=== PATIENT | female | born 1935 | race Caucasian/White ===

== ENCOUNTER → 2016-07-21 | Outpatient (CLI) | payer MEDICARE, OTHER | LOC: RAD 07:03 | PROVIDERS: ATTEND Family Medicine | DX: M25.551 Pain in right hip (principal) | CPT/HCPCS: 72195 ==

== ENCOUNTER → 2017-05-01 | Outpatient (CLI) | payer MEDICARE, OTHER ==
--- NOTE | 2017-05-01 14:42 | RADIOLOGY REPORT (SQ) ---
EXAM DESCRIPTION: MRI RT LOWER JOINT WITHOUT COMPLETED DATE/TIME: 05/01/2017 1:38 pm REASON FOR STUDY: TROCHANTERIC BURSITIS, RIGHT HIP (M70.61) M70.61 TROCHANTERIC BURSITIS, RIGHT HIP COMPARISON: MRI right hip 10/13/2010 TECHNIQUE: Righthip images acquired and stored on PACS. Multiplanar images to include fat sensitive sequences as T1, fluid sensitive sequences as T2/STIR and gradient echo sequences. Large FOV fat and fluid sensitive sequences include pelvis and opposite hip. LIMITATIONS: None. FINDINGS: BONE CORTEX AND MARROW: No generalized marrow replacement. No occult fracture. No worriso me bone lesions. RIGHT HIP: FEMORAL HEAD: No occult fracture. No osteophytes or subchondral cysts. Normal sphericity of femoral h ead/neck junction. No acetabular dysplasia. No evidence femoroacetabular impingement. No significant effusion. ACETABULUM: No acetabular dysplasia. No subchondral cysts. LABRUM: No loss of cartilage or delamination. Tiny anterior labral tear. No paralabral cysts. TROCHANTER: Trace trochanteric bursal effusion. There is edema/fluid at the insertion of the gluteus medius. There is also of a small intramuscular tear along the gluteus medius, best shown on sagitta l series 8, image 6, and coronal series 9, image 11. LEFT HIP: Limited evaluation. No worrisome bone lesions. No significant effusion. Minimal left tro chanteric bursitis PELVIS, LOWER LUMBAR SPINE, SACROILIAC JOINTS: PELVIS : No insufficiency/stress fractures. No significant degenerative changes. Sacroiliac joints normal. L SPINE: Convex rightward lumbar curvature MUSCLES AND SOFT TISSUES: Adductors and piriformis normal. Abductors and greater trochanteric bursa n ormal without edema or fluid. Iliopsoas bursa without fluid. Hamstring attachments without edema or t ear. PELVIC SOFT TISSUES: No masses or adenopathy. Post hysterectomy. Small right and left bladder diver ticuli OTHER: No other significant finding. IMPRESSION: Gluteus medius intramuscular tear without significant hematoma Right trochanteric bursitis Minimal left trochanteric bursitis TECHNICAL DOCUMENTATION: JOB ID: [id number] [employer]- All Rights Reserved
== END ==
LOC: RAD 12:23
PROVIDERS: ATTEND Family Medicine
DX: M70.61 Trochanteric bursitis, right hip (principal)

== ENCOUNTER 2018-04-24 06:42 | Day surgery (SDC) | payer MEDICARE, OTHER ==
[~2018-04-24 06:42] MED LIST: BUPIVACAINE HCL 0.75% INJ/PF (7.5 MG/1 ML) 10 ML SDV OS PRN; DORZOLAMIDE HCL 2%/TIMOLOL MALEAT 0.5% OPH SOLN 10 ML OS PRN; KETOROLAC TROMETHAMINE 0.45% 4 DROP/0.4 ML DROPERETTE OS PRN; LIDOCAINE 4% INJ/PF (40 MG/ML) 5 ML AMPUL OS PRN
[2018-04-24] MEDS: TETRACAINE HCL 0.5% OPH SOLN 0.6 ML DROPERETTE OS PRN ×2 (07:00→07:18)
[2018-04-24] MEDS: BESIFLOXACIN HCL 0.6% OPH SUSP 5 ML BOTTLE OS PRN ×4 (07:00→07:57)
[2018-04-24] MEDS: TROPICAMIDE 1% OPH SOLN 3 ML OS PRN ×3 (07:00→07:18)
[2018-04-24] MEDS: CYCLOPENTOLATE 0.2%/PHENYLEPHRINE 1% OPH SOLN 2 ML OS PRN ×3 (07:00→07:18)
[2018-04-24] MEDS ORDERED: EPINEPHRINE INJ/PF 1 MG/1 ML AMPULE ONE (07:12)
[2018-04-24] MEDS ORDERED: CHONDR SU A NA/HYALUR INTRAOC KIT (SURGICARE) ONE (07:12)
[2018-04-24] MEDS ORDERED: MIDAZOLAM 2 MG/2 ML INJ ONE (07:20)
[2018-04-24] MEDS ORDERED: FENTANYL CITRATE INJ/PF 100 MCG/2 ML AMPUL ONE (07:20)
[2018-04-24] MEDS: LIDOCAINE 1% INJ-PF (10 MG/ML) 30 ML SDV ONE ×2 (07:28→07:44)
--- NOTE | 2018-04-24 08:21 | [facility] OPERATIVE REPORT E ---
[facility] Operative Report NAME: PILAR EDGAR AGE: 83Y DATE OF SURGERY: 04/24/2018 ROOM: PREOPERATIVE DIAGNOSIS: CATARACT, LEFT EYE. POSTOPERATIVE DIAGNOSIS: CATARACT, LEFT EYE. PROCEDURE PERFORMED: PHACOEMULSIFICATION WITH POSTERIOR CHAMBER INTRAOCULAR LENS, LEFT EYE. SURGEON: LEE FLANNERY MD ANESTHESIA: TOPICAL WITH MAC. INDICATIONS FOR SURGERY: Difficulty driving at night due to glare. Best corrected visual acuity 20/40. PROCEDURE: The patient was brought to the Operating Room and placed on the operative table. Following tetracaine drops, topical anesthesia was administered. This consisted of instrument wipe pledgets soaked in a solution of 4% Xylocaine mixed with 0.75% Marcaine in a 1:2 ratio. A 2 x 1 cm pledget was placed in the superior fornix. A 1 x 1 cm pledget was placed in the inferior fornix. The eye was patched shut for 5 minutes. The patch was removed. The eye was sterilely prepped and draped in the usual manner. Lid speculum was placed in the eye. The pledgets were removed. 4-0 black silk sutures were placed around the superior and the inferior rectus muscles to be used as traction. A conjunctival peritomy was made at the 10 o'clock position. Hemostasis was obtained with bipolar cautery. A posterior limbal groove was created using a crescent knife and dissected anteriorly towards the cornea. A sharp point blade was used to create a paracentesis site at the 2 o'clock position. A 2.4 mm keratome was used to enter the anterior chamber through the groove. Viscoelastic was injected into the anterior chamber. An anterior capsulotomy was performed using Utrata forceps in a capsulorrhexis fashion. Hydrodissection and hydrodelineation were performed. Phacoemulsification was performed in toreqd-lbt-[id number] technique. A total of 4.55 CDE phaco time was used. Following this, the I/A unit was used to remove residual cortex. Viscoelastic was injected into the capsular bag. Intraocular lens model [id number], 25.5 diopters, serial number [id number] was placed in the capsular bag. The I/A unit was used to remove residual viscoelastic. The wound was seen to be watertight under high and low pressure, and no sutures were placed. The intraocular lens was well centered. The pressure was adjusted in the eye to normal pressure. The 4-0 black silk sutures and lid speculum were removed. The eye was shielded after Besivance drops were placed. The patient tolerated the procedure well and was sent to the Recovery Room in good condition. One drop of Cosopt and Besivance was placed in the eye at the end of surgery. DICTATING PHYSICIAN: LEE FLANNERY M.D. DICTATING PHYSICIAN: LEE FLANNERY M.D. [id number] PHY#: [id number] ID: [id number] JOB#: [id number] ACCT: [id number] cc:LEE FLANNERY M.D. > MTDD
--- NOTE | 2018-04-24 08:27 | [facility] DISCHARGE SUMMARY E ---
[facility] Discharge Summary NAME: PILAR EDGAR AGE: 83Y ADMITTED: 04/24/2018 DISCHARGED: 04/24/2018 FINAL DIAGNOSIS: CATARACT, LEFT EYE. HOSPITAL COURSE: The patient is an 82-year-old lady who underwent uneventful cataract extraction with intraocular lens implant, left eye on 04/24/2018. She will be discharged to home. She is instructed to resume preoperative medications, take Tylenol as needed for discomfort, to keep her eye shielded, to use Besivance, Prolensa, and Durezol at 3 p.m. and 8 p.m., and to follow up in my office in 1 day. DICTATING PHYSICIAN: LEE FLANNERY M.D. [id number] PHY#: [id number] ID: [id number] JOB#: [id number] ACCT: [id number] cc:LEE FLANNERY M.D. >
== END 2018-04-24 08:35 | disposition home or self-care (01) ==
LOC: SC 06:42
PROVIDERS: ATTEND Ophthalmology
DX: H25.812 Combined forms of age-related cataract, left eye (principal); I10 Essential (primary) hypertension; M19.90 Unspecified osteoarthritis, unspecified site; Z79.899 Other long term (current) drug therapy
CPT/HCPCS: 66984; V2632; J2250; J3490 ×4; A9270; J0171; J3010; 142

== ENCOUNTER 2018-09-27 20:08 | Emergency (ER) | payer MEDICARE, OTHER ==
[2018-09-27] MEDS ORDERED: ASPIRIN 81 MG TABLET, CHEWABLE PO STA (23:10)
--- NOTE | 2018-09-27 23:17 | ER Document Report ---
ED Medical Screen (RME) - General Chief Complaint: Epigastric Pain Stated Complaint: Chest pain Time Seen by Provider: 09/27/18 23:01 Information source: Patient, Relative Notes: Patient is a 3-year-old female comes emergency room stating that she felt like she is having a heart attack approximately 5 PM this afternoon. Patient is calmly by/friend/relative who states that she was eating a BLT when she started having sudden onset of anterior chest pain and discomfort. Patient states that she thought at that point she was having a heart attack and she states so did the other women are with her. She also states that for women are staying at her house currently. Patient states that this discomfort and pain lasted for approximately 3hours and just recently went away while she was in the emergency room. She states she feels better now. She denies any history of heart problems in the past. Only has a history of hypertension. She does not smoke drink or do drugs. She took [address] to the emergency room. Denies any nausea vomiting she denies any diaphoresis during the actual event. TRAVEL OUTSIDE OF THE [place] IN LAST 30 DAYS: No - HPI Onset: This evening Onset/Duration: Sudden, Better Quality of pain: Sharp, Stabbing Severity: Moderate Pain Level: 4 Associated Symptoms: Chest pain Exacerbated by: Denies Relieved by: Other - Time eliminated the discomfort. Similar symptoms previously: No Recently seen / treated by doctor: No - Related Data Allergies/Adverse Reactions: No Known Allergies Allergy (Verified 04/24/18 07:02) Past Medical History - General Information source: Patient - Social History Cigarette use (# per day): No Chew tobacco use (# tins/day): No Frequency of alcohol use: None Drug Abuse: None Lives with: Alone Family history: Reviewed & Not Pertinent - Past Medical History Cardiac Medical History: Reports: Hx Hypercholesterolemia, Hx Hypertension - MILD Denies: Hx Heart Attack Pulmonary Medical History: Denies: Hx Asthma Neurological Medical History: Denies: Hx Cerebrovascular Accident, Hx Seizures Renal/ Medical History: Denies: Hx Peritoneal Dialysis GI Medical History: Denies: Hx Hepatitis, Hx Hiatal Hernia, Hx Ulcer Infectious Medical History: Denies: Hx Hepatitis Past Surgical History: Reports: Hx Hysterectomy, Hx Orthopedic Surgery. Denies: Hx Mastectomy, Hx Open Heart Surgery, Hx Pacemaker - Immunizations Hx Diphtheria, Pertussis, Tetanus Vaccination: Yes - 2013 Review of Systems - Review of Systems Constitutional: No symptoms reported EENT: No symptoms reported Cardiovascular: See HPI, Chest pain Respiratory: No symptoms reported Gastrointestinal: No symptoms reported Genitourinary: No symptoms reported Female Genitourinary: No symptoms reported Musculoskeletal: No symptoms reported Skin: No symptoms reported Hematologic/Lymphatic: No symptoms reported Neurological/Psychological: No symptoms reported Physical Exam - Vital signs Vitals: Temp Pulse Resp BP Pulse Ox 98.0 F 83 16 178/77 H 96 09/27/18 20:31 09/27/18 20:09/27/18 20:31 09/27/18 20:31 09/27/18 20:31 Interpretation: Hypertensive - Notes Notes: PHYSICAL EXAMINATION: GENERAL: Patient is a well-nourished well-developed 83-year-old female who is anxious on physical exam today. HEAD: Atraumatic, normocephalic. LUNGS: Breath sounds clear to auscultation bilaterally and equal. No wheezes r ales or rhonchi. HEART: Regular rate and rhythm without murmurs Musculoskeletal: Normal range of motion, no pitting or edema. No cyanosis. NEUROLOGICAL: Normal speech, normal gait. Normal sensory, motor exams PSYCH: Normal mood, normal affect. SKIN: Warm, Dry, normal turgor, no rashes or lesions noted. Course - Vital Signs Vital signs: Temp Pulse Resp BP Pulse Ox 98.0 F 83 16 178/77 H 96 09/27/18 20:31 09/27/18 20:31 09/27/18 20:31 09/27/18 20:31 09/27/18 20:31
[2018-09-27 23:40] LABS: ABSOLUTE BASOPHILS # (AUTO) 0.1 10^3/uL (0.0-0.2); ABSOLUTE EOSINOPHILS # (AUTO) 0.1 10^3/uL (0.0-0.6); ABSOLUTE LYMPHOCYTES (AUTO) 3.7 10^3/uL (0.5-4.7); ABSOLUTE MONOCYTES (AUTO) 1.1 10^3/uL (0.1-1.4); ABSOLUTE NEUT (AUTO) 13.7 10^3/uL (1.7-8.2); BASOPHILS % (AUTO) 0.5 % (0-2); EOSINOPHILS % (AUTO) 0.3 % (0-6); HEMATOCRIT 42.5 % (36.0-47.0); HEMOGLOBIN 14.3 g/dL (12.0-15.5); LYMPHOCYTES % (AUTO) 19.7 % (13-45); MEAN CORPUSCULAR HEMOGLOBIN 28.5 pg (27.0-33.4); MEAN CORPUSCULAR HGB CONC 33.5 g/dL (32.0-36.0); MEAN CORPUSCULAR VOLUME 85 fl (80-97); MONOCYTES % (AUTO) 5.8 % (3-13); PLATELET COUNT 395 10^3/uL (150-450); RED CELL DISTRIBUTION WIDTH 13.2 % (11.5-14.0); SEGMENTED NEUTROPHILS % (AUTO) 73.7 % (42-78); TOTAL CELLS COUNTED % (AUTO) 100 %; WHITE BLOOD COUNT 18.6 10^3/uL (4.0-10.5)
--- NOTE | 2018-09-28 00:07 | RADIOLOGY REPORT (SQ) ---
CLINICAL HISTORY: Chest pain COMPARISON: None. TECHNIQUE: XR CHEST 1 VIEW 09/27/2018 11:10 PM CDT FINDINGS: Cardiac silhouette is normal in size. Lungs are clear without consolidation, atelectasis, mass or edema. There is no pleural effusion. There is no pneumothorax. There are no acute osseous findings. IMPRESSION: Clear lungs.
--- NOTE | 2018-09-28 01:07 | ER Document Report ---
ED General - General Chief Complaint: Epigastric Pain Stated Complaint: Chest pain Time Seen by Provider: 09/27/18 23:01 Primary Care Provider: MELBA FAULKNER MD [Primary Care Provider] - Follow up as needed Notes: Patient is an 83-year-old female that comes to the emergency department for chief complaint of epigastric pain. She states the pain was in her upper abdomen, she points to the epigastric area, she states she had pain that radiated away from this and up into her chest. This started while she was eati ng a BLT at approximately 5 PM this evening. She states that she continued to have pain for 2 to 3 hours which was intermittently sharp, afterwards this resolved. She denies any current symptoms. She denies flank pain, shortness of breath, vomiting, fever. She did have some nausea what was happening. Past medical history includes hypertension, hyperlipidemia, hysterectomy. She denies ever having a stress test, she denies family history of CAD or [place], she denies smoking, diabetes, or any other medical history. TRAVEL OUTSIDE OF THE [place] IN LAST 30 DAYS: No - Related Data Allergies/Adverse Reactions: No Known Allergies Allergy (Verified 04/24/18 07:02) Past Medical History - General Information source: Patient - Social History Smoking Status: Former Smoker Cigarette use (# per day): No Chew tobacco use (# tins/day): No Frequency of alcohol use: None Drug Abuse: None Lives with: Alone Family History: Reviewed & Not Pertinent Patient has suicidal ideation: No Patient has homicidal ideation: No - Past Medical History Cardiac Medical History: Reports: Hx Hypercholesterolemia, Hx Hypertension - MILD Denies: Hx Heart Attack Pulmonary Medical History: Denies: Hx Asthma Neurological Medical History: Denies: Hx Cerebrovascular Accident, Hx Seizures Renal/ Medical History: Denies: Hx Peritoneal Dialysis GI Medical History: Denies: Hx Hepatitis, Hx Hiatal Hernia, Hx Ulcer Infectious Medical History: Denies: Hx Hepatitis Past Surgical History: Reports: Hx Hysterectomy, Hx Orthopedic Surgery. Denies: Hx Mastectomy, Hx Open Heart Surgery, Hx Pacemaker - Immunizations Hx Diphtheria, Pertussis, Tetanus Vaccination: Yes - 2012 Hx Pneumococcal Vaccination: 02/20/12 Review of Systems - Review of Systems Constitutional: No symptoms reported EENT: No symptoms reported Cardiovascular: See HPI Respiratory: No symptoms reported Gastrointestinal: See HPI Genitourinary: No symptoms reported Female Genitourinary: No symptoms reported Musculoskeletal: No symptoms reported Skin: No symptoms reported Hematologic/Lymphatic: No symptoms reported Neurological/Psychological: No symptoms reported Physical Exam - Vital signs Vitals: Temp Pulse Resp BP Pulse Ox 98.0 F 83 16 178/77 H 96 09/27/18 20:31 09/27/18 20:31 09/27/18 20:31 09/27/18 20:31 09/27/18 20:31 - Notes Notes: GENERAL: Alert, interacts well. No acute distress. HEAD: Normocephalic, atraumatic. EYES: Pupils equal, round, and reactive to light. Extraocular movements intact. ENT: Oral mucosa moist, tongue midline. Oropharynx unremarkable. Airway patent. NECK: Full range of motion. Supple. Trachea midline. LUNGS: Clear to auscultation bilaterally, no wheezes, rales, or rhonchi. No respiratory distress. HEART: Regular rate and rhythm. No murmur ABDOMEN: Soft, non-tender. Non-distended. Bowel sounds present in all 4 quadrants. GENITOURINARY: Deferred EXTREMITIES: Moves all 4 extremities spontaneously. No edema, normal radial and dorsalis pedis pulses bilaterally. No cyanosis. BACK: no cervical, thoracic, lumbar midline tenderness. No saddle anesthesia, normal distal neurovascular exam. NEUROLOGICAL: Alert and oriented x3. Normal speech. . PSYCH: Anxious but easily reassured SKIN: Warm, dry, normal turgor. No rashes or lesions noted. Course - Re-evaluation Re-evalutation: Patient is anxious but well-appearing. She is easily reassured with discussion however. EKG reviewed by me, shows sinus rhythm, no T wave inversions or ST segment changes in consecutive leads, normal axis. Chest x-ray unremarkable. CBC shows leukocytosis at 18,000. Chemistry hemolyzed, troponin hemolyzed. On evaluation patient has a soft benign abdomen although she does indicate the epigastric area as the area of her pain previously. I discussed leukocytosis 18,000. Patient has an unremarkable exam, no sick symptoms, negative chest x- ray. Family and patient state that patient became extremely anxious during her pain episode, this could be stress shift although this is nonspecific. I did discuss this with family. Family is already asking if they can leave, patient is already asking to leave. Patient has had delay because of the hemolyzed labs, blood was redrawn and there will be 8 hours of symptom duration at the point of the troponin. They are requesting that if this is negative they can leave and she will follow-up closely with her primary care. Her heart score is 3. Chemistry unremarkable, troponin was negative. Lipase is normal. I discussed again with family and patient, they are requesting to leave after discussion of options including admission, they state they will follow-up closely and return if she worsens in any way. Discharged with return precautions. - Vital Signs Vital signs: Temp Pulse Resp BP Pulse Ox 98.4 F 76 16 149/69 H 100 09/28/18 03:04 09/28/18 03:04 09/28/18 03:04 09/28/18 03:04 09/28/18 03:04 - Laboratory Result Diagrams: 09/27/18 23:26 09/28/18 00:50 Laboratory results interpreted by me: 09/27/18 09/28/18 23:26 00:50 WBC 18.6 H Absolute Neutrophils 13.7 H Sodium 136.3 L BUN 24 H Discharge - Discharge Clinical Impression: Epigastric pain Chest pain Qualifiers: Chest pain type: unspecified Qualified Code(s): R07.9 - Chest pain, unspecified Condition: Stable Disposition: HOME, SELF-CARE Additional Instructions: There is no evidence of heart attack, pancreatitis, or other concerning abnormality at this time. This was most likely an esophageal spasm although this is not definite. I recommend that you take the famotidine as prescribed for the next several days. Follow-up closely with your primary care for additional evaluation and management of your epigastric/chest pain that occurred today. Return if you worsen including return severe pain, vomiting, difficulty breathing, passing out, or any other concerning symptoms. Prescriptions: Famotidine [Pepcid 20 mg Tablet] 20 mg PO BID #12 tablet Referrals: MELBA FAULKNER MD [Primary Care Provider] - Follow up as needed
[2018-09-28 01:27] LABS: ALANINE AMINOTRANSFERASE 28 U/L (9-52); ALBUMIN 3.8 g/dL (3.5-5.0); ALKALINE PHOSPHATASE 63 U/L (38-126); ANION GAP 9 (5-19); ASPARTATE AMINO TRANSFERASE 34 U/L (14-36); BILIRUBIN,DIRECT 0.3 mg/dL (0.0-0.4); BILIRUBIN,TOTAL 0.3 mg/dL (0.2-1.3); BLOOD UREA NITROGEN 24 mg/dL (7-20); CALCIUM 9.7 mg/dL (8.4-10.2); CARBON DIOXIDE 25 mmol/L (22-30); CHLORIDE 102 mmol/L (98-107); CREATINE KINASE 32 U/L (30-135); GLUCOSE 102 mg/dL (75-110); SODIUM 136.3 mmol/L (137-145); TOTAL PROTEIN 6.9 g/dL (6.3-8.2)
[2018-09-28] MEDS ORDERED: FAMOTIDINE 20 MG TABLET PO ONE (02:07)
[2018-09-28 03:05] VITALS: BP 149/69
--- NOTE | 2018-09-28 22:37 | EKG REPORT ---
SEVERITY:- NORMAL ECG - SINUS RHYTHM : Confirmed by: Mandy Elise MD 28-Sep-2018 22:36:27
== END 2018-09-28 03:05 | disposition home or self-care (01) ==
LOC: ER 20:08
DX: R10.13 Epigastric pain (principal); R07.9 Chest pain, unspecified; R11.0 Nausea; D72.829 Elevated white blood cell count, unspecified; I10 Essential (primary) hypertension; Z87.891 Personal history of nicotine dependence
CPT/HCPCS: 93005; 99284; 36415; 82550; 83690; 85025; 80053; 84484; 71045; 93010; A9270